=== PATIENT | female | born 1935 | race Caucasian/White ===

== ENCOUNTER 2018-11-27 15:19 | Emergency (ER) | payer MEDICARE ==
--- NOTE | 2018-11-27 15:53 | RAD ---
RIGHT KNEE FOUR VIEWS: HISTORY: Right knee pain. COMPARISON: None. FINDINGS: Four views of the right knee show no evidence of acute fracture or dislocation. No knee effusion is seen. No significant degenerative changes are seen. IMPRESSION: Unremarkable examination. POS: [facility]
[2018-11-27] MEDS ORDERED: traMADol HCl 50 MG TAB ONE (16:42)
== END 2018-11-27 17:01 | disposition home health service (06) ==
LOC: ERS 15:19
DX: M25.561 Pain in right knee (principal); K58.9 Irritable bowel syndrome, unspecified; Z79.899 Other long term (current) drug therapy; X50.9XXA Other and unspecified overexertion or strenuous movements or postures, initial encounter

== ENCOUNTER 2018-12-22 13:43 | Outpatient (CLI) | payer MEDICARE ==
--- NOTE | 2018-12-22 15:37 | RAD ---
PA AND LATERAL CHEST: History: Cough. FINDINGS: Heart size is within normal limits. There are atherosclerotic changes of the aorta. Lungs are clear o f any infiltrative process. No significant bony findings. IMPRESSION: No active intrathoracic disease. POS: [facility]
== END 2018-12-22 13:44 | disposition home or self-care (01) ==
LOC: BICRAD 13:43
PROVIDERS: ATTEND Physician Assistant Medical
DX: K21.9 Gastro-esophageal reflux disease without esophagitis (principal); R05 Cough
CPT/HCPCS: 71046